=== PATIENT | female | born 1990 | race Caucasian/White ===

== ENCOUNTER 2017-11-01 12:04 | Inpatient (IN) | payer BC ==
[~2017-11-01] VITALS: Ht 170.2 cm; Wt 88.9 kg
[2017-11-04 08:00] VITALS: BP 109/63; Ht 170.2 cm; Wt 88.9 kg
[2017-11-04] MEDS ORDERED: OXYTOCIN 30 UNIT/D5LR 500 ML 500 ML IV PRN ×2 (08:22→23:15)
[2017-11-04] MEDS ORDERED: FAMOTIDINE(*) 20MG/50ML PREMIX 50 ML IVPB PRN (08:22)
[2017-11-04] MEDS ORDERED: LIDOCAINE 1% LOCAL 300 MG/30ML INJ PRN (08:25)
[2017-11-04] MEDS ORDERED: fentaNYL CITR 100 MCG/2 ML AMP IVP PRN (08:25)
[2017-11-04] MEDS ORDERED: METOCLOPRAMIDE 10 MG/2 ML SDV IVP PRN (08:25)
[2017-11-04] MEDS ORDERED: LIDOCAINE/SOD BICARB 8.4% SYR SC PRN (08:25)
[2017-11-04 08:50] VITALS: BP 109/63
[2017-11-04] MEDS ORDERED: PENICILLIN G 5 MILLUN/100 ML 100 ML IVPB ONE (09:00)
[2017-11-04 09:03] LABS: PLATELET COUNT, AUTOMATED 150 K/uL (150-450)
[2017-11-04] MEDS: LR(*) 1000 ML BAG 1,000 ML IV PRN ×4 (09:18→21:50)
[2017-11-04] MEDS ORDERED: PNV1TABL24 PO (10:00)
[2017-11-04] MEDS: PENICILLIN G 2.5 MILLUN/100 ML 100 ML IVPB SCH ×3 (12:57→21:53)
--- NOTE | 2017-11-04 13:18 | History & Physical ---
History of Present Illness Age of Patient: 26 : 1 Para or TPAL: 0 EDC per U/S: Oct 30, 2017 Estimated Gestational Age: 40.4 Chief Complaint Loss of fluid History of Present Illness Presents for leaking fluid since 3 am. Amnisure positive and no contractions. Started on Pitocin induction and currently on 12 mu/min. Good contractions pattern and noticeable but not painful. Was 3 cm on admission. GBS positive. Normal uncomplicated care. Past Medical, Surgical, Family and Obstetric Histories reviewed. [place] [facility] [place] History Patient's Blood Type: A Positive Rubella Status: Immune Group B Strep Screen: Positive Allergies: Coded Allergies: No Known Drug Allergies (Unverified , 11/04/17) Family History: No Family History of: FH: asthma FH: diabetes mellitus FH: heart disease FH: hypertension Malignant hyperthermia Med Rec Home Meds Reported Medications Pnv No.122/Iron/Folic Acid ( Multi Tablet) 1 Each Tablet, 1 TAB PO DAILY 11/04/17 Review of Systems All Systems Reviewed/Normal: Yes, Except as Noted Exam General Exam Vital Signs Vital Signs Date Time Temp Pulse Resp B/P (MAP) Pulse Ox O2 Delivery O2 Flow Rate FiO2 11/04/17 08:50 98.0 18 109/63 (78) Room Air 11/04/17 08:00 92 General Apperance: Alert/Awake/No Acute Distress Neuro: No Gross deficits Cardiovascular: Regular Rate and Rhythm Respiratory: No Respiratory Distress Abdomen: Soft, Non-Tender, Non-Distended, Gravid - Non-Tender Integumentary: Skin Intact without Lesions or Rash Psychological: Alert & Oriented X3, Appropriate Mood & Affect Vaginal Discharge/Fluid?: Bloody Show, Clear Fluid Cervical Dialation: 4 Cervical Effacement (%): 80 Cervical Consistency: Soft Cervical Position: Anterior Station: -2 Presentation: Vertex Fetus Heart Tone Variabilty: Moderate FHT Accelerations: 15X15 FHT Category: I Medical Decision Making Data Points Result Diagram: 11/04/17 0854 VTE Prophylasis: Adult Deep Vein Thrombosis/Pulmonary: No Pharmacological Contraindicati: Pt at Low Risk for VTE Mechanical Contraindications: Pt at Low Risk for VTE 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 Penicillin IV started. Continue every 4 hours Expecting regional anesthesia and . (2) GBS carrier (3) PROM (premature rupture of membranes) Problem Qualifiers (1) PROM (premature rupture of membranes): PROM onset of labor timing: onset of labor within 24 hours of rupture PROM gestational age: full term Qualified Codes: O42.02 - Full-term premature rupture of membranes, onset of labor within 24 hours of rupture MADDIE MABRY MD Nov 04, 2017 13:17
[2017-11-04] MEDS ORDERED: LIDO/EPI 2% MPF 1:200,000 20ML EPI PRN (13:55)
[2017-11-04] MEDS ORDERED: fentaNYL CITR 100 MCG/2 ML AMP IT PRN (13:55)
[2017-11-04] MEDS ORDERED: EPIDURAL KEYS XX PRN (13:55)
[2017-11-04] MEDS ORDERED: BUPIVACAINE 0.5% INJ 30ML VIAL EPI PRN (13:55)
[2017-11-04] MEDS ORDERED: FENTANYL/ROPIVACAINE 100 ML BAG EPI PRN (13:55)
[2017-11-04] MEDS ORDERED: BUPIVACAINE 0.25% MPF INJ EPI PRN (13:55)
[2017-11-04] MEDS ORDERED: LIDOCAINE/PF 2% 200MG/10ML AMP 200 MG/10 ML AMPUL EPI PRN (13:55)
--- NOTE | 2017-11-04 20:46 | Anesthesia OB Pre-Anes Eval ---
History of Present Illness Anesthesia Start Date: Nov 04, 2017 Anesthesia Start Time: 17:15 OB Anesthesia Diagnosis: spontaneous ROM Complications: None known EDC: Oct 30, 2017 : 1 Para: 0 Vital Signs: Vital Signs Date Time Temp Pulse Resp B/P (MAP) Pulse Ox O2 Delivery O2 Flow Rate FiO2 11/04/17 08:50 98.0 18 109/63 (78) Room Air 11/04/17 08:00 92 Pain Ratin Heart Tones: WNL Result Diagram: 11/04/17 0854 Height (Inches): 67.00 Weight (Pounds): 196 BMI Calculated: 30.69 Past Medical History Medical History: no pertinent history Surgical History: no surgical history Attended Childbirth Classes?: No Hx Anesthesia Reactions: No Hx Family Anesthesia Reaction: No Current Medications: pitocin Home Meds Reported Medications Pnv No.122/Iron/Folic Acid ( Multi Tablet) 1 Each Tablet, 1 TAB PO DAILY 11/04/17 Allergies: Coded Allergies: No Known Drug Allergies (Unverified , 11/04/17) Anesthesia OB ROS Neurological: No migraines/headaches, No seizures, No neuropathy ENT: Denies Tooth caps, Denies Loose teeth, Denies Chipped teeth, Denies Dentures, Denies Bridges, Denies Retainers, Denies Veneers, Denies Implants, Denies Tongue ring Pulmonary: No asthma, No smoker (pks/day/yrs) Airway Class: ll Cardiovascular ROS: No edema, No arrhythmia GI ROS: clear liquids Last Solids Date: Nov 04, 2017 Last Solids Time: 07:00 ROS: No Herpes, No STD(s), No Liver Disease, No Renal Disease Endocrine ROS: No diabetes, No gestational diabetes, No thyroid disorder; other Musculoskeletal ROS: No low back pain, No low back injury, No scoliosis ASA Classification: 2 Assessment and Plan Anesthesia Plan: CSE Assessment Past Medical, Surgical, Family and Obstetric Histories reviewed. Please see [facility] chart. Spoke with pt. and her MSO several hours prior to her desire for anesthesia. At that time, thoroughly explained epidural anesthesia risks, complications and benefits explained to patient's satisfaction for labor and vaginal delivery and/or section. General anesthesia risks and benefits explained to patient's satisfaction. Questions invited, none asked. LOYDA RIVERA CRNA Nov 04, 2017 20:46
--- NOTE | 2017-11-04 20:59 | Procedure Note ---
Anesthetic Placement Note Anesthesia Plan: CSE Permit for Anesthesia Signed: Yes Anesthesia Technique: Patient Sitting Anesthesia Prep: Chlorhexidine Interspace: L 2-3 Local Anesthetic: 1% Lidocaine, 25 Gauge Needle Amount Local - cc's: 4 Anesthesia Needle: 17g Vladuhvamsi/Lexiiliff Anesthesia Attempts: 3 Loss of Resistance: Air Depth of AUDREY (cm): 7 Epidural Needle Placement: No CSF, No Blood, No Parasthesia Intrathecal Needle: 27 Gauge Pencan Cerebral Spinal Fluid: No Catheter Insertion (cm): 10 Catheter Type: Jama - Spring Wound Epidural Dressing: Tegaderm, Tape, Adhesive [place] Anesthesia Tray: Lot Number ([id number] x 2 trays), Expiration Date (2018-10-18 x 2 trays), Reference Number ([id number] x 2 trays) Comment: Unable to obtain AUDREY with first attempt at L3-4. Needle repositioned and continued to no enter epidural space even at a depth of 6 cm. Local repeated one level lower and again, unable to locate epidural space at a very adequate depth. Pt's. position changed to sitting serbian style and still not able. Pt. was able to sit with fair cooperation in maintaining position. Lack of tolerance of contractions was decreasing and physical shaking noted. Offered her some IV Fentenyl which she accepted. 50 Mg Fentenyl given IV and excellent pain relief. Local then repeated at L2-3 and AUDREY obtained on first attempt (with new epidural tray and reprepping pt.) Good AUDREY at 7 cm. Threaded intrathecal needle thru and did not obtain any CSF. Epidural needle was then flushed with 2 ml of NS and epidural catheter threaded. Negative aspiration. Test dose given and negative. Anesthesia Medications: Epidural Test Dose: 1.5 Lido/Epi (1:200,000), Dose - mL (2), Time (1812), Negative Epidural Loading Dose: 0.2% Ropivicaine (5 ml), 0.25% Marcaine (4 ml), With Fentanyl 2mcg/ml (5 ml), Time (1814) Epidural Infusion: 0.2% Ropivicaine, With Fentanyl 2mcg/ml, Start Time: (1844) Epidural Pump Setting: Bolus Dose - mL (5), Lockout - Minutes (20), Maintenance Rate - mL/hr (6), Maximum per Hour - mL (21) Complications: None Comment: Pt. became comfortable within 15 of loading dose. Does not feel any contractions. Able to move legs well. Encouraged to rest/sleep. LOYDA RIVERA BRAIDING MACHINE TENDER Nov 04, 2017 20:59
--- NOTE | 2017-11-04 21:01 | Anesthesia Progress Note ---
Progress/Maintenance Anesthesia Note Date: Nov 04, 2017 Anesthesia Note Time: 20:30 Pain Intensity: 0 Pump: On Pump Rate (ML/HR): 6 Sensory Level: T-12 Motor Level: Bending Knees-Bilateral Dilatation: 5 Position: Left, Tilt Assessment and Plan Assessment Pt. remains very comfortable. Legs feel "heavy" but able to move both. LOYDA RIVERA CRNA Nov 04, 2017 21:01
--- NOTE | 2017-11-04 23:14 | Anesthesia Progress Note ---
Progress/Maintenance Anesthesia Note Date: Nov 04, 2017 Anesthesia Note Time: 22:45 Pain Intensity: 0 Pump: On Pump Rate (ML/HR): 6 Sensory Level: T-12 Motor Level: Bending Knees-Bilateral Dilatation: 6 Position: Right, Tilt Assessment and Plan Assessment Pt. remains very comfortable and attempting to rest. Able to move legs and has started to notice some contractions. LOYDA RIVERA CRNA Nov 04, 2017 23:14
--- NOTE | 2017-11-05 00:10 | Labor Progress Note ---
Labor Subjective Progress Notes Subjective Slow progression today. Was 3cm this AM and slow progression and titration of Pitocin to 4 cm by 1300. Was reported to be 5 cm by 1649 and 5.5 cm [id number]. At shift change, the new nurse reports 5 cm at 1900 and 6 cm by 2119. I presented for further evaluation and placement of IUPC. Vaginal Discharge/Fluid: Bloody Show, Clear Fluid Labor Pain: Comfortable (epidural) Labor Objective Vital Signs Vital Signs Date Time Temp Pulse Resp B/P (MAP) Pulse Ox O2 Delivery O2 Flow Rate FiO2 11/04/17 08:50 98.0 18 109/63 (78) Room Air 11/04/17 08:00 92 Vaginal Discharge/Fluid?: Bloody Show, Clear Fluid Cervical Dialation: 6 Cervical Effacement (%): 100 Cervical Consistency: Soft Cervical Position: Anterior Station: -1 Presentation: Vertex (ROP) Uterine Contractions(Q min): 2 Uterine Contraction Strength: Moderate Fetus Heart Tone Variabilty: Moderate FHT Accelerations: 15X15 FHT Category: I Other Result Diagram: 11/04/17 0854 Assessment and Plan Problems: (1) 40 weeks gestation of Assessment & Plan: IUPC placed for more direct measurement of contractions. It was reported that there was a forebag that just recently was ruptured on the 6 cm exam. Will confirm adequate contractions and if so, await changes over the next 2 hours. If no descent and or cervical change, will discuss abdominal delivery. Will titrate Pitocin if not adequate. Position changes in bed to attempt to move the OP position. (2) GBS carrier (3) PROM (premature rupture of membranes) Problem Qualifiers (1) PROM (premature rupture of membranes): PROM onset of labor timing: onset of labor within 24 hours of rupture PROM gestational age: full term Qualified Codes: O42.02 - Full-term premature rupture of membranes, onset of labor within 24 hours of rupture MADDIE MABRY MD Nov 05, 2017 00:10
[2017-11-05] MEDS: PENICILLIN G 2.5 MILLUN/100 ML 100 ML IVPB SCH ×3 (02:03→09:06)
[2017-11-05] MEDS ORDERED: OXYTOCIN 30 UNIT/D5LR 500 ML 500 ML IV PRN (04:15)
--- NOTE | 2017-11-05 04:22 | Anesthesia Progress Note ---
Progress/Maintenance Anesthesia Note Date: Nov 05, 2017 Anesthesia Note Time: 04:00 Pain Intensity: 1 Pump: On Pump Rate (ML/HR): 6 Sensory Level: T-12 Motor Level: Bending Knees-Bilateral Dilatation: 8 Position: Right, Tilt Assessment and Plan Assessment Pt. used the epidural bolus 1x previously for rt sided contraction discomfort. Relief was obtained and pt. is now very comfortable. LOYDA RIVERA CRNA Nov 05, 2017 04:22
--- NOTE | 2017-11-05 04:24 | Labor Progress Note ---
Labor Subjective Progress Notes Subjective MVUs have been adequate but recent cervical change has been encouraging. Now 8 cm/0 station by nursing report, over 2 hours. My exam confirms 8cm/ 0 station and still ROP position. Vaginal Discharge/Fluid: Bloody Show Labor Pain: Mild Labor Objective Vital Signs Vital Signs Date Time Temp Pulse Resp B/P (MAP) Pulse Ox O2 Delivery O2 Flow Rate FiO2 11/04/17 08:50 98.0 18 109/63 (78) Room Air 11/04/17 08:00 92 Cervical Dialation: 8 Cervical Effacement (%): 100 Station: 0 Presentation: Vertex Fetus Heart Tone Variabilty: Moderate FHT Accelerations: 15X15 FHT Category: I Other Result Diagram: 11/04/17 0854 Assessment and Plan Problems: (1) 40 weeks gestation of Assessment & Plan: Discussed with pt that we are on an abnormal labor curve, I think due to the posterior position of the baby. Baby is still looking ok and options are to give it some more time to see if progress is made further or proceed with now. She would like to wait and give it more time as long as the baby looks ok. Will recheck again at 6 and see if more progress. She may need forceps assistance if she gets to the stage of complete and +2 due to the posterior positioning. (2) GBS carrier (3) PROM (premature rupture of membranes) Problem Qualifiers (1) PROM (premature rupture of membranes): PROM onset of labor timing: onset of labor within 24 hours of rupture PROM gestational age: full term Qualified Codes: O42.02 - Full-term premature rupture of membranes, onset of labor within 24 hours of rupture MADDIE MABRY MD Nov 05, 2017 04:23
[2017-11-05] MEDS: LR(*) 1000 ML BAG 1,000 ML IV PRN (05:09)
[2017-11-05] MEDS ORDERED: METHYLERGONOVINE MAL 0.2MG/ML IM PRN (06:05)
[2017-11-05] MEDS ORDERED: CARBOPROST TROMETHAM 250MCG/ML IM ONLY PRN (06:05)
[2017-11-05] MEDS ORDERED: MISOPROSTOL 200 MCG TAB PR PRN (06:05)
[2017-11-05] MEDS ORDERED: CARBOPROST TROMETHAM 250MCG/ML IM ONLY ONE (06:06)
[2017-11-05] MEDS ORDERED: MISOPROSTOL 200 MCG TAB ONE (06:06)
[2017-11-05] MEDS ORDERED: METHYLERGONOVINE MAL 0.2MG/ML ONE (06:07)
--- NOTE | 2017-11-05 09:33 | Anesthesia Progress Note ---
Progress/Maintenance Anesthesia Note Date: Nov 05, 2017 Anesthesia Note Time: 09:15 Pain Intensity: 3 Pump: Off Pump Rate (ML/HR): 6 Sensory Level: T-12 Motor Level: Bending Knees-Bilateral Dilatation: 10 Position: Semi-Fowlers Drug Bolus: 0.5% Marcaine (4 ml), Other (Fentenyl 70 mcgs) Assessment and Plan Assessment Pt. is pushing well. Epidural pump infusion empty. Manual bolus given as pt. is starting to crown. LOYDA RIVERA CRNA Nov 05, 2017 09:33
[2017-11-05] MEDS ORDERED: MAGNESIUM HYDROXIDE* 30ML UDCP PO PRN (10:45)
[2017-11-05] MEDS ORDERED: ACETAMINOPHEN 325 MG TAB PO PRN (10:45)
[2017-11-05] MEDS ORDERED: INFLUENZA VIRUS VAC 0.5ML SYR IM ONLY ONE (10:45)
[2017-11-05] MEDS ORDERED: GLYCERIN/WITCH HAZEL LEAF 1 PK TP PRN (10:45)
[2017-11-05] MEDS ORDERED: BENZOCAINE 20% 60 ML BTL TP PRN (10:45)
[2017-11-05] MEDS ORDERED: HYDROCORTISONE 2.5% CR 30GM TB PR PRN (10:45)
[2017-11-05] MEDS ORDERED: LANOLIN OINT 7 GM TUBE TP PRN (10:45)
--- NOTE | 2017-11-05 10:51 | OB Delivery Note ---
Delivery Note Vaginal Delivery Type: Spont. Vaginal Delivery Delivery Date: Nov 05, 2017 Delivery Time: 10:17 Estimated Gestational Age(wks): 40.5 Delivery Anesthesia: Epidural Sex: Female Infant Weight (gms): 3752 Apgars: 1 Minute (5), 5 Minute (7) Repair Needed: Episiotomy-Midline, 2nd Degree Estimated Blood Loss: 300 Delivery Complications: Nuchal Cord (X 2) Notes: Presented with PROM and Pitocin induction of labor. Was 3 cm on admission and slow progression to 5 cm by 1410. Continued slowly advancing to 6 cm by 2119. At this time exam felt to be ROP. IUPC placed and continued to monitor for progress. Pregressed to 8 cm by 0245 and complete by 0542. Allowed to labor down as baby reassuring with category 1 strip. Began pushing at around 0745. Pushing effectively with slow progress. Baby continued to look reassuring until was and severe variables with slow return noted. Consent for episiotomy recieved and performed a midline second degree. Over the next contraction, delivery in ROP position with an apparent double nuchal cord noted. Delivery of shoulders was spontaneous. Placenta delivered spontaneous and intact. Repair with 2-0 Chromic with success. No complications. Copy Reader in Attendence: No Copies to: MADDIE MABRY MD ; MADDIE MABRY MD Nov 05, 2017 10:51
--- NOTE | 2017-11-05 10:55 | Anesthesia Progress Note ---
Progress/Maintenance Anesthesia Note Date: Nov 05, 2017 Anesthesia Note Time: 10:20 Pain Intensity: 5 Pump: Off Motor Level: Bending Knees-Bilateral Dilatation: 10 Drug Bolus: 0.5% Marcaine (4 ml) Assessment and Plan Assessment: Excellent tolerance of delivery. Additional 4 ml 0.5% Marcaine plain given for repair work. Empty syringe attached to epidural catheter and RN agrees to remove with ambulation. Assessment Patient instructed the first ambulation is to be with help of nursing staff. Instructed to preform deep knee bends at bedside before walking. Anesthesia Stop Day: Nov 05, 2017 Anesthesia Stop Time: 10:20 LOYDA RIVERA CRNA Nov 05, 2017 10:55
[2017-11-05] MEDS ORDERED: LIDOCAINE 1% LOCAL 300 MG/30ML INJ ONE (11:00)
[2017-11-05] MEDS: IBUPROFEN 800 MG TAB PO SCH ×2 (13:10→21:45)
[2017-11-05] MEDS: APAP/HYDROCODONE 325/5 TAB PO PRN ×2 (13:15→19:41)
[2017-11-05 14:30] VITALS: BP 116/68
[2017-11-05] MEDS ORDERED: LIDOCAINE 1% LOCAL 300 MG/30ML 30 ML ONE (16:13)
[2017-11-05 19:20] VITALS: BP 123/84
[2017-11-05] MEDS: DOCUSATE CALCIUM 240 MG CAP PO SCH (21:45)
[2017-11-05 22:45] VITALS: BP 127/78
[2017-11-06 02:51] VITALS: BP 114/76
[2017-11-06] MEDS: APAP/HYDROCODONE 325/5 TAB PO PRN ×2 (02:51→11:12)
[2017-11-06] MEDS: IBUPROFEN 800 MG TAB PO SCH ×2 (06:33→15:31)
[2017-11-06 07:44] VITALS: BP 115/78
[2017-11-06] MEDS ORDERED: MEASLES,MUMP,RUBELLA VAC 0.5ML SUBQ ONE (09:00)
[2017-11-06] MEDS ORDERED: DIPHTH/TETANUS/ACEL. PERTUSSIS IM ONLY ONE (09:00)
--- NOTE | 2017-11-06 09:06 | OB/GYN Progress Note ---
OB Subjective Progress Notes Subjective Doing well. Pain controlled and bleeding light. Tolerating well. GI: NEG Nausea : Voiding Well Pain: Mild OB Objective Physical Exam Vital Signs Date Time Temp Pulse Resp B/P (MAP) Pulse Ox O2 Delivery O2 Flow Rate FiO2 11/06/17 07:44 97.4 65 16 115/78 (90) 94 Room Air Intake and Output 11/06/17 07:00 Output Total 1956 ml Balance -1956 ml Output Urine Total 1956 ml # Voids 4 General Appearance: Alert/Awake/No Acute Distress Neurological: No Gross deficits Cardiovascular: Normal Rhythm & Peripheral Pulses, Regular Rate and Rhythm Respiratory: No Respiratory Distress, Clear to Auscultation Abdomen: Soft, Non-Tender, Non-Distended, Fundus Firm, Non-Tender Integumentary: Skin Intact without Lesions or Rash Psychological: Alert & Oriented X3, Appropriate Mood & Affect Result Diagram: 11/06/17 0610 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 Discharge to room in if needed. (2) GBS carrier (3) PROM (premature rupture of membranes) Problem Qualifiers (1) PROM (premature rupture of membranes): PROM onset of labor timing: onset of labor within 24 hours of rupture PROM gestational age: full term Qualified Codes: O42.02 - Full-term premature rupture of membranes, onset of labor within 24 hours of rupture MADDIE MABRY MD Nov 06, 2017 09:06
[2017-11-06] MEDS ORDERED: IBUP800T37 PO (09:07)
--- NOTE | 2017-11-06 09:10 | OB/GYN Discharge Summary ---
Discharge Summary Reason for Hosp/Final Diag: (1) 40 weeks gestation of Hospital Course & Plan: s/p of posterior presenting baby. (2) GBS carrier (3) PROM (premature rupture of membranes) Lates Vital Signs Vital Signs Date Time Temp Pulse Resp B/P (MAP) Pulse Ox O2 Delivery O2 Flow Rate FiO2 11/06/17 07:44 97.4 65 16 115/78 (90) 94 Room Air Weight (Pounds): 196 Result Diagram: 11/06/17 0610 Condition: Improved Discharge: Home, Self Skilled Nursing Meds Reported Medications Pnv No.122/Iron/Folic Acid ( Multi Tablet) 1 Each Tablet, 1 TAB PO DAILY 11/04/17 Follow up Referrals: [facility] - In 6 Weeks @ [facility] with MADDIE MANTILLA MD Follow up with: Dr. Mantilla [phone] Follow up in: 6 wks PP or PO Discharge Diet: As Tolerates Discharge Activity: As Tolerates, No Heavy Lifting x 6 wks, No Heavy Lifting > 10lb, Pelvic Rest Copies to: MADDIE MANTILLA MD ; Problem Qualifiers (1) PROM (premature rupture of membranes): PROM onset of labor timing: onset of labor within 24 hours of rupture PROM gestational age: full term Qualified Codes: O42.02 - Full-term premature rupture of membranes, onset of labor within 24 hours of rupture MADDIE MANTILLA MD Nov 06, 2017 09:10
[2017-11-06] MEDS: DOCUSATE CALCIUM 240 MG CAP PO SCH (09:32)
--- NOTE | 2017-11-06 14:23 | Anesthesia Post Eval Note ---
Anesthesia Post Eval Note Vital Signs Date Time Temp Pulse Resp B/P (MAP) Pulse Ox O2 Delivery O2 Flow Rate FiO2 11/06/17 07:44 97.4 65 16 115/78 (90) 94 Room Air Pt able to participate in Eval: Yes Cardiovascular Status: Satisfactory Respiratory Status: Satisfactory Pain Managment: Satisfactory PO Nausea/Vomiting: Satisfactory Temperature Management: Satisfactory Mental Status: Satisfactory, Alert, Oriented X3 Post-Op Hydration Status: Satisfactory, Tolerating PO Well, Voiding w/o Difficulty Anesthesia Type: CSE Anesthesia Tolerance: Tolerated procedure well without apparent anesthetic complications. LP site clear, no redness or edema. Denies headache or any residual paresthesia. Vital Signs Stable, Patient comfortable and condition stable. LOYDA RIVERA CRNA Nov 06, 2017 14:23
== END 2017-11-06 15:37 | disposition home or self-care (01) | DRG 775 ==
LOC: OB 11-04 07:23
PROVIDERS: ADMIT Obstetrics & Gynecology; ATTEND Obstetrics & Gynecology
PROC: 10E0XZZ Delivery of Products of Conception, External Approach (ICD-10-PCS; principal; 2017-11-05)
PROC: 10H07YZ Insertion of Other Device into Products of Conception, Via Natural or Artificial Opening (ICD-10-PCS; 2017-11-05)
PROC: 0W8NXZZ Division of Female Perineum, External Approach (ICD-10-PCS; 2017-11-05)
DX: O42.02 Full-term premature rupture of membranes, onset of labor within 24 hours of rupture (principal); O99.824 Streptococcus B carrier state complicating childbirth; Z3A.40 40 weeks gestation of pregnancy; Z37.0 Single live birth; O69.81X0 Labor and delivery complicated by cord around neck, without compression, not applicable or unspecified
CPT/HCPCS: 36415; 84112; 85025; 85027; 86703; 86850; 86900; 86901; J2001; J2540; J2590; J3010; J7120; S0020